=== PATIENT | female | born 1975 | race Caucasian/White ===

== ENCOUNTER → 2016-11-13 | Day surgery (SDC) | payer OTHER ==
[~2016-11-13] VITALS: Ht 162.6 cm; Wt 64.9 kg
[~2016-11-13] MED LIST: PERCOCET 325 MG1 TA2 PO; VALIUM5 M1 PO
--- NOTE | 2016-11-13 12:40 | Operative Report ---
Operative/Inv Procedure Report Surgery Date: 11/13/16 Name of Procedure: Excision left axillary lymph node Pre-Operative Diagnosis: Left breast cancer, axillary recurrence Post-Operative Diagnosis: Same Estimated Blood Loss: scant Surgeon/Ecology Professor: MONICA PINTO MD Anesthesia: local monitored anesthesi Specimens: Left axillary lymph node Operative/Procedure Note Note: Patient is status post bilateral mastectomy and left axillary dissection for node-positive left breast cancer. She did not have the recommended postoperative adjuvant chemotherapy and radiation. She presents 1 year later with axillary recurrence. The lymph node was localized using ultrasound guidance. As films reviewed. She was brought to the operating room on 11/13/2016 and placed supine on the table. Left axilla was prepped and draped in a sterile fashion using ChloraPrep and she was given 2 g of Ancef. Local anesthesia 1% lidocaine exception Marcaine was given and a transverse incision was made in the low axilla in the region of the localized lymph node. The lymph node was adjacent to the implant in tissue just lateral to the reconstructed breast. Subcutaneous tissue was dissected and a large specimen was taken around the localized area. Intraoperative x-ray confirmed the presence of the clip in the specimen. Hemostasis was adequate. Deep tissue was proximal made using interrupted Vicryl sutures and skin was closed using running subcutaneous color stitch. Steri- Strips and sterile dressings were applied and the patient was transferred to the recovery room in satisfactory condition having tolerated the procedure well.
--- NOTE | 2016-11-13 15:10 | MAMMOGRAPHY REPORT ---
PROCEDURE: US GUIDANCE FOR BREAST PREOPERATIVE NEEDLE LOCALIZATION, LEFT AXILLARY LYMPH NODE. MM POST NEEDLE LOCALIZATION SINGLE CC VIEW, LEFT AXILLA. SPECIMEN RADIOGRAPHY CLINICAL INFORMATION: 41-year-old female with history of left-sided breast carcinoma. Status post bilateral mastectomy with surgical reconstruction (with implant) in June 2015. Recent clinical examination found to have left axillary palpable lump. Targeted ultrasound of the left axilla done on 10/15/2016 showed 2 morphologically abnormal lymph nodes, one within the axillary tail region and the second within the high axilla. Ultrasound-guided biopsy done on 10/20/2016 showed benign lymph node from the left high axillary lymph node biopsy and presence of invasive carcinoma compatible with breast origin from the lower axillary lymph node biopsy. Ultrasound-guided needle localization of the low left axillary lymph node is requested prior to surgical excision. COMPARISON: 10/20/2016. TECHNIQUE AND FINDINGS: The details of the procedure, as well as the risks, benefits, and alternatives to the procedure were explained to the patient in detail and all of her questions were answered, after which, written informed consent was obtained. Prior to the procedure, sonography revealed the indexed tissue marker containing biopsy proved malignant left axillary lymph node within the low axillary region adjacent to the breast implant. Time-out was performed, the lesion intended for needle localization was targeted and the skin of the left axilla was then prepped and draped in the usual sterile fashion. Using sonographic guidance, sterile technique and buffered approximately 8 mL of 2 % lidocaine without epinephrine for local anesthesia, a 5 cm Kopan's needle was placed within the biopsy proved malignant lymph node containing the tissue marker at low axillary tail region adjacent to the implant. The patient tolerated the procedure well.. The single view mammogram further confirmed accurate placement of the needle within the lymph node. Previously placed tissue marker was also identified adjacent to the needle. The worksheet/mammogram was appropriately labeled and was sent to the OR with the patient. Subsequently, following excision of the lymph node, the specimen radiography was performed which revealed target within the specimen with intact wire and the previously placed tissue marker within the lymph node. IMPRESSION: 1. Successful sonographic guided needle localization of the biopsy-proven malignant lower axillary tail lymph node containing the tissue marker (from prior ultrasound-guided biopsy done on 10/20/2016). 2. Mammographic confirmation of accurate needle localization along with appropriate marking for presurgical roadmap with worksheet. 3. Final specimen radiograph confirming complete, adequate excision of the lymph node and removal of the previously placed tissue marker and intact wire.
== END ==
LOC: STS 01:43 → CBW.IIU 08:00 → CBW.MAMMO 08:30
DX: C77.3 Secondary and unspecified malignant neoplasm of axilla and upper limb lymph nodes (principal); Z85.3 Personal history of malignant neoplasm of breast; E21.5 Disorder of parathyroid gland, unspecified; F17.200 Nicotine dependence, unspecified, uncomplicated
CPT/HCPCS: 76942; 81025; 88307; G0206; J0131; J0690; J1100; J2250; J2405